=== PATIENT | male | born 1980 | race Caucasian/White ===

== ENCOUNTER 2020-10-02 16:01 | Outpatient (CLI) | payer OTHER, SELFPAY | END 2020-10-02 16:02 | disposition home or self-care (01) | LOC: ANHLAB 16:04 | PROVIDERS: PCP Family Medicine; Visit Provider Family Medicine | DX: M25.571 Pain in right ankle and joints of right foot (principal); M25.572 Pain in left ankle and joints of left foot | CPT/HCPCS: 36415; 84550 ==

== ENCOUNTER → 2020-11-28 11:30 | Outpatient (CLI) | payer OTHER, SELFPAY ==
--- NOTE | ~2020-11-28 | XR_ITS ---
XR ankle LT 2V DATE: 11/28/2020 11:43 INDICATION: Right ankle pain TECHNIQUE: AP and lateral views COMPARISON: None FINDINGS: No fracture or dislocation of the ankle or disruption of the ankle mortise is evident. No p eriosteal reaction or bone destruction. IMPRESSION: No significant abnormality Reviewed, dictated and finalized at location B. IMPRESSION: No significant abnormality
--- NOTE | ~2020-11-28 | XR_ITS ---
XR ankle RT 2V DATE: 11/28/2020 11:43 INDICATION: Right ankle pain TECHNIQUE: 2 views COMPARISON: None FINDINGS: No soft tissue swelling, fracture or dislocation of the ankle or disruption of the ankle mo rtise is detected. There are 2 corticated bony ossicles anterior to the distal tibia. No periosteal r eaction or bone destruction. IMPRESSION: No fracture or dislocation Reviewed, dictated and finalized at location B. IMPRESSION: No fracture or dislocation
== END ==
PROVIDERS: PCP Family Medicine; Visit Provider Family Medicine
DX: M25.571 Pain in right ankle and joints of right foot (principal); M25.572 Pain in left ankle and joints of left foot
CPT/HCPCS: 73600

== ENCOUNTER 2022-04-30 11:54 | Outpatient (CLI) | payer OTHER, SELFPAY ==
[2022-04-30 12:35] LABS: Hemoglobin A1C 11.8 % (<5.7)
[2022-04-30 13:52] LABS: Alanine Aminotransferase 66 U/L (6-50); Albumin Level 4.4 g/dL (3.5-5.1); Alkaline Phosphatase 144 U/L (38-126); Anion Gap 12 mmol/L (8-16); Aspartate Amino Transferase 57 U/L (17-59); Bilirubin,Total 0.6 mg/dL (0.2-1.3); Blood Urea Nitrogen 14 mg/dL (9-20); Calcium 8.8 mg/dL (8.4-10.2); Carbon Dioxide 24 mmol/L (22-30); Chloride 92 mmol/L (98-107); Estimated Glomerular Filt Rate > 60; Glucose 575 mg/dL (65-110); Potassium 4.5 mmol/L (3.4-5.0); Sodium 128 mmol/L (137-145)
== END 2022-04-30 11:55 | disposition home or self-care (01) ==
PROVIDERS: PCP Family Medicine; Visit Provider Family Medicine
DX: E11.65 Type 2 diabetes mellitus with hyperglycemia (principal)
CPT/HCPCS: 36415; 80053; 83036